=== PATIENT | male | born 1965 | race Hispanic/Latino ===

== ENCOUNTER 2021-12-14 18:00 | Emergency (ER) | payer OTHER ==
[2021-12-14] MEDS ORDERED: THIAMINE 100 MG, FOLIC ACID 1 MG, MULTIPLE VITAMIN INJ, ADULT 10 ML in SODIUM CHLORIDE ... IV ONE (18:12)
[2021-12-14] MEDS ORDERED: SODIUM CHLORIDE 0.9% 1000 ML 1,000 ML IV ONE (18:12)
--- NOTE | 2021-12-14 18:16 | Emergency Department Report ---
HPI - HPI HPI: The patient was brought from rehab where they could not intake him because he was intoxicated with alcohol. His level was around 371 and so he was sent here for medical clearance. The patient says his last drink was around 2 PM. He denies nausea vomiting fever chills or any other associated symptoms. Nothing makes this better nor worse. He has a history of GERD, high blood pressure and depression for which she takes Lexapro and Protonix. <KIRAN OCONNELL - Last Filed: 12/14/21 20:42> <INGRID BROOKS - Last Filed: 12/15/21 12:18> - General Chief Complaint: Alcohol Time Seen by Provider: 12/14/21 18:09 ED Past Medical Hx - Past Medical History Previous Medical History?: Yes Additional medical history: Alcoholism, GERD, depression - Surgical History Past Surgical History?: No - Family History Family history: no significant - Social History Smoking Status: Never Smoker Substance Use Type: Alcohol <KIRAN OCONNELL - Last Filed: 12/14/21 20:42> ED Review of Systems ROS: Stated complaint: ETOH/MEDICAL CLEARENCE Other details as noted in HPI Other: All other systems reviewed and negative. <KIRAN OCONNELL - Last Filed: 12/14/21 20:42> ROS: Stated complaint: ETOH/MEDICAL CLEARENCE Other details as noted in HPI <INGRID BROOKS - Last Filed: 12/15/21 12:18> Physical Exam - Physical Exam Physical Exam: Physical Exam: Constitutional: AAOX3. No acute distress. No diaphoresis. He has an alcohol smell. HENT: Normocephalic. Pupils equal and reactive. No throat edema or erythema. Neck: No neck rigidity or tenderness. Cardiovascular: Heart sounds: No murmur. Normal rate and regular rhythm. Pulses: Intact distal pulses. Lungs: No wheezing or rales. Chest wall: No tenderness. Abdominal: No distension. No mass/pulsatile mass. No abdominal tenderness, guarding nor rebound. Musculoskeletal: Normal range of motion. No edema, No calf TTP. Skin: Warm and dry. Neurological: Alert and oriented to person, place, and time. Psychiatric: Mood and affect normal. Normal cognition and memory. Normal judgement. The patient is alert active and oriented x3 and making good eye contact. The mood is euethymic with congruent affect. The patient does not seem under the influence of any psychoactive substances. The thought pattern is relevant and coherent. The patient denies suicidal ideations. <KIRAN OCONNELL - Last Filed: 12/14/21 20:42> - Physical Exam Vital Signs: Vital Signs 12/14/21 12/14/21 12/14/21 18:20 18:41 23:48 Temperature 98.3 F 98.2 F Pulse Rate 65 65 78 Respiratory 16 16 16 Rate Blood Pressure 136/68 Blood Pressure 124/60 [Right] O2 Sat by Pulse 95 97 98 Oximetry 12/15/21 12/15/21 12/15/21 07:02 08:30 09:10 Temperature 98.6 F Pulse Rate 72 88 67 Respiratory 16 17 14 Rate Blood Pressure Blood Pressure 133/65 118/65 133/69 [Right] O2 Sat by Pulse 98 99 98 Oximetry <INGRID BROOKS - Last Filed: 12/15/21 12:18> ED Course - Reevaluation(s) Reevaluation #1: 12/14/21 20:42 Chemistries and CBC came back within normal limits and the liver enzymes were elevated. The alcohol level was elevated at 0.35. We will watch him here for several hours to get his alcohol under control and see if he starts experiencing alcohol withdrawal. <KIRAN OCONNELL - Last Filed: 12/14/21 20:42> Vital Signs 12/14/21 12/14/21 12/14/21 18:20 18:41 23:48 Temperature 98.3 F 98.2 F Pulse Rate 65 65 78 Respiratory 16 16 16 Rate Blood Pressure 136/68 Blood Pressure 124/60 [Right] O2 Sat by Pulse 95 97 98 Oximetry 12/15/21 12/15/21 12/15/21 07:02 08:30 09:10 Temperature 98.6 F Pulse Rate 72 88 67 Respiratory 16 17 14 Rate Blood Pressure Blood Pressure 133/65 118/65 133/69 [Right] O2 Sat by Pulse 98 99 98 Oximetry <INGRID BROOKS - Last Filed: 12/15/21 12:18> ED Medical Decision Making - Lab Data Result diagrams: 12/14/21 18:15 12/14/21 18:15 <KIRAN OCONNELL - Last Filed: 12/14/21 20:42> - Lab Data Result diagrams: 12/14/21 18:15 12/14/21 18:15 <INGRID BROOKS - Last Filed: 12/15/21 12:18> Critical care attestation.: If time is entered above; I have spent that time in minutes in the direct care of this critically ill patient, excluding procedure time. <KIRAN OCONNELL - Last Filed: 12/14/21 20:42> Critical care attestation.: If time is entered above; I have spent that time in minutes in the direct care of this critically ill patient, excluding procedure time. <INGRID BROOKS - Last Filed: 12/15/21 12:18> ED Disposition <KIRAN OCONNELL - Last Filed: 12/14/21 20:42> Is pt being admited?: No Does the pt Need Aspirin: No <INGRID BROOKS - Last Filed: 12/15/21 12:18> Clinical Impression: Medical clearance for psychiatric admission Disposition: 01 HOME / SELF CARE / HOMELESS Condition: Stable
[2021-12-14 19:31] LABS: Basophils # (Auto) 0.1 K/mm3 (0.0-0.1); Basophils % (Auto) 1.2 % (0.0-1.8); Eosinophils # (Auto) 0.1 K/mm3 (0.0-0.4); Eosinophils % (Auto) 1.2 % (0.0-4.3); Hematocrit 45.3 % (35.5-45.6); Hemoglobin 15.7 gm/dl (11.8-15.2); Lymphocytes # (Auto) 2.9 K/mm3 (1.2-5.4); Lymphocytes % (Auto) 35.2 % (13.4-35.0); Mean Corpuscular HGB Conc 35 % (32-34); Mean Corpuscular Volume 92 fl (84-94); Monocytes # (Auto) 0.9 K/mm3 (0.0-0.8); Monocytes % (Auto) 10.8 % (0.0-7.3); Platelet Count 133 K/mm3 (140-440); Red Blood Count 4.93 M/mm3 (3.65-5.03); Red Cell Distribution Width 14.8 % (13.2-15.2)
[2021-12-14 19:45] LABS: Alanine Aminotransferase 152 units/L (7-56); Albumin 4.4 g/dL (3.9-5); Blood Urea Nitrogen 5 mg/dL (9-20); Calcium 9.1 mg/dL (8.4-10.2); Hemolysis Index 8
[2021-12-14 20:06] LABS: BUN/Creatinine Ratio 10
[2021-12-14 23:59] LABS: Bilirubin,Urine NEG (Negative); Blood,Urine NEG (Negative); Color,Urine Yellow (Yellow); Protein,Urine <15 mg/dL mg/dL (Negative); Urobilinogen,Urine < 2.0 mg/dL (<2.0); WBC,Urine < 1.0 /HPF (0.0-6.0)
[2021-12-15 00:07] LABS: Amphetamine Screen,Urine PRESUMPTIVE NEGATIVE; Benzodiazepines Screen,Urine PRESUMPTIVE NEGATIVE; Cannabinoid Screen,Urine PRESUMPTIVE NEGATIVE; Cocaine Screen,Urine PRESUMPTIVE NEGATIVE; Methadone Screen,Urine PRESUMPTIVE NEGATIVE; Opiate Screen,Urine PRESUMPTIVE NEGATIVE
[2021-12-15 09:16] VITALS: BP 133/69
== END 2021-12-15 13:03 | disposition home or self-care (01) ==
LOC: ED 18:00
DX: F10.129 Alcohol abuse with intoxication, unspecified (principal); Z79.899 Other long term (current) drug therapy
CPT/HCPCS: 36415; 80053; 80307; 81001; 83690; 83735; 85025; 96365; 96367; 99284; J3411; J3490; J7030; 80320; G0480